=== PATIENT | male | born 1945 | race Caucasian/White ===

== ENCOUNTER 2019-11-17 19:16 | Inpatient (IN) | payer MEDICARE ==
[~2019-11-17] VITALS: Ht 175.3 cm; Wt 84.0 kg
[2019-11-17] MEDS ORDERED: DILTIAZEM 5 MG/ML, 5ML ONE (20:18)
[2019-11-17] MEDS ORDERED: INSULIN SINGLE DOSE, ER ONE ×2 (20:26→20:30)
[2019-11-17] MEDS ORDERED: INSULIN REGULAR 100 UNITS/ML, 3ML VIAL IV ONE (20:30)
[2019-11-17] MEDS ORDERED: DILTIAZEM 5 MG/ML, 5ML IVPush ONE (20:30)
[2019-11-17 20:43] LABS: MEAN CORPUSCULAR HEMOGLOBIN 30.3 pg (27.5-34.5); MEAN CORPUSCULAR HGB CONC 34.7 g/dL (33.2-36.2); MEAN CORPUSCULAR VOLUME 87.5 fL (81-97); MEAN PLATELET VOLUME 8.4 fL (7.4-10.4); PH, VENOUS 7.404 pH (7.320-7.420); PLATELET COUNT 138 x10^3/uL (130-400); RED BLOOD COUNT 4.96 x10^6/uL (4.38-5.82); RED CELL DISTRIBUTION WIDTH 13.2 % (9.4-14.8)
[2019-11-17 20:53] LABS: ALANINE AMINOTRANSFERASE 22 U/L (12-78); ALBUMIN 3.1 g/dL (3.4-5.0); ANION GAP 12 mmol/L (5-15); CALCIUM 8.9 mg/dL (8.5-10.1); CHLORIDE 92 mmol/L (98-107); CREATININE 1.86 mg/dL (0.7-1.3)
[2019-11-17 20:58] LABS: ALKALINE PHOSPHATASE 61 U/L (45-117); BILIRUBIN,TOTAL 0.8 mg/dL (0.2-1.0); TOTAL PROTEIN 7.3 g/dL (6.4-8.2); TROPONIN I < 0.015 ng/mL (0.000-0.045)
[2019-11-17 21:06] LABS: MD YES
[2019-11-17 21:09] LABS: <RBC MORPHOLOGY> NORMAL; BAND#(MANUAL) 2.27 x10^3/uL; BANDS%(MANUAL) 12 % (0-7); LYMPH#(MANUAL) 0.19 x10^3/uL (1-3.4); LYMPHS% (MANUAL) 1 % (22-44); MONOS#(MANUAL) 1.51 x10^3/uL (0.3-2.7); MONOS% (MANUAL) 8 % (2-9); SEG#(MANUAL) 14.93 x10^3/uL (1.8-6.8); SEGS% (MANUAL) 79 % (42-75)
[2019-11-17 21:10] LABS: <PLATELET ESTIMATE> DECREASED; <PLT MORPHOLOGY> NORMAL PLT MORPH
[2019-11-17 21:51] LABS: ACETONE, SERUM Small (20mg/dL) (Negative)
[2019-11-17 22:23] LABS: MICROSCOPIC INDICATED
[2019-11-17 22:41] LABS: CULTURE INDICATED? YES
[2019-11-17 23:09] VITALS: BP 104/74
[2019-11-17] MEDS: LACTATED RINGERS 1,000 ML IV SCH (23:34)
[2019-11-17 23:59] VITALS: BP 132/75
[2019-11-18] MEDS ORDERED: DILTIAZEM 5 MG/ML, 5ML IVPush ONE
[2019-11-18] MEDS ORDERED: LIDODERM 5% PATCH TD PRN
[2019-11-18] MEDS ORDERED: DOCUSATE 100 MG CAPSULE PO PRN
[2019-11-18] MEDS ORDERED: INSULIN LISPRO 100 UNITS/ML, PEN SQ-INSULIN SCH (00:30)
[2019-11-18 01:09] LABS: RAPID INFLUENZA A Negative (Negative); RAPID INFLUENZA B Negative (Negative)
[2019-11-18] MEDS: CEFTRIAXONE PMX 1GM/50ML 50 ML IV SCH (01:53)
[2019-11-18 02:14] VITALS: BP 134/71
[2019-11-18] MEDS: ACETAMINOPHEN 325 MG TABLET PO PRN ×2 (02:19→10:25)
[2019-11-18] MEDS: LACTATED RINGERS 1,000 ML IV SCH (02:30)
[2019-11-18 04:41] LABS: MEAN CORPUSCULAR HEMOGLOBIN 30.1 pg (27.5-34.5); MEAN CORPUSCULAR HGB CONC 34.2 g/dL (33.2-36.2); MEAN CORPUSCULAR VOLUME 87.9 fL (81-97); PLATELET COUNT 134 x10^3/uL (130-400); RED BLOOD COUNT 4.25 x10^6/uL (4.38-5.82); RED CELL DISTRIBUTION WIDTH 12.7 % (9.4-14.8)
[2019-11-18 04:48] LABS: ANION GAP 11 mmol/L (5-15); CALCIUM 8.2 mg/dL (8.5-10.1); CHLORIDE 94 mmol/L (98-107); CREATININE 1.48 mg/dL (0.7-1.3)
[2019-11-18] MEDS ORDERED: MAGNESIUM SULFATE/D5W 100 ML IV ONE (05:00)
[2019-11-18 05:40] LABS: BASOPHILS # (AUTO) 0.02 x10^3/uL (0-0.1); BASOPHILS % (AUTO) 0 % (0-1); EOSINOPHILS # (AUTO) 0.01 x10^3/uL (0-0.4); EOSINOPHILS % (AUTO) 0 % (1-7); LYMPHOCYTES # (AUTO) 0.44 x10^3/uL (1-3.4); LYMPHOCYTES % (AUTO) 3 % (22-44); MD SCAN; MONOCYTES # (AUTO) 0.85 x10^3/uL (0.2-0.8); MONOCYTES % (AUTO) 5 % (2-9); NEUTROPHILS # (AUTO) 16.42 x10^3/uL (1.8-6.8); NEUTROPHILS % (AUTO) 93 % (42-75)
[2019-11-18 07:07] VITALS: BP 138/75
[2019-11-18] MEDS ORDERED: DILTIAZEM 125 MG in SODIUM CHLORIDE 0.9% 100 ML IV SCH (08:00)
[2019-11-18] MEDS ORDERED: INSULIN GLARGINE 100 UNITS/ML, PEN SQ-INSULIN SCH (08:00)
[2019-11-18] MEDS: INSULIN LISPRO 100 UNITS/ML, PEN SQ-INSULIN SCH ×4 (09:41→21:36)
[2019-11-18] MEDS ORDERED: METOPROLOL TARTRATE 25 MG TAB PO SCH (11:30)
[2019-11-18 12:19] VITALS: BP 104/64
[2019-11-18] MEDS ORDERED: SODIUM CHLORIDE 0.9% 1,000 ML IV SCH (13:00)
[2019-11-18 16:30] VITALS: BP 86/65
[2019-11-18 17:22] VITALS: BP 101/63
[2019-11-18] MEDS: DILTIAZEM 125 MG in SODIUM CHLORIDE 0.9% 100 ML IV SCH (19:28)
[2019-11-18 20:20] VITALS: BP 124/76
[2019-11-18] MEDS: INSULIN GLARGINE 100 UNITS/ML, PEN SQ-INSULIN SCH (21:36)
[2019-11-18] MEDS ORDERED: LACTATED RINGERS 1,000 ML IV SCH (23:30)
[2019-11-19 00:26] VITALS: BP 145/88
[2019-11-19] MEDS: CEFTRIAXONE PMX 1GM/50ML 50 ML IV SCH (00:39)
[2019-11-19] MEDS: METOPROLOL TARTRATE 25 MG TAB PO SCH ×3 (06:43→21:53)
[2019-11-19 07:26] VITALS: BP 132/79
[2019-11-19] MEDS: INSULIN LISPRO 100 UNITS/ML, PEN SQ-INSULIN SCH ×4 (07:50→21:54)
[2019-11-19] MEDS: INSULIN GLARGINE 100 UNITS/ML, PEN SQ-INSULIN SCH ×2 (07:50→21:53)
[2019-11-19] MEDS ORDERED: DILTIAZEM 125 MG in SODIUM CHLORIDE 0.9% 100 ML IV SCH (08:00)
[2019-11-19 08:52] LABS: MEAN CORPUSCULAR HEMOGLOBIN 30.4 pg (27.5-34.5); MEAN CORPUSCULAR HGB CONC 33.9 g/dL (33.2-36.2); MEAN CORPUSCULAR VOLUME 89.7 fL (81-97); MEAN PLATELET VOLUME 8.8 fL (7.4-10.4); PLATELET COUNT 131 x10^3/uL (130-400); RED BLOOD COUNT 4.42 x10^6/uL (4.38-5.82)
[2019-11-19 09:22] LABS: ANION GAP 8 mmol/L (5-15); CALCIUM 8.8 mg/dL (8.5-10.1); CHLORIDE 95 mmol/L (98-107); CREATININE 1.46 mg/dL (0.7-1.3)
[2019-11-19 09:27] LABS: MD YES
[2019-11-19 09:28] LABS: BAND#(MANUAL) 1.11 x10^3/uL; BANDS%(MANUAL) 7 % (0-7); LYMPH#(MANUAL) 0.16 x10^3/uL (1-3.4); LYMPHS% (MANUAL) 1 % (22-44); MONOS#(MANUAL) 0.32 x10^3/uL (0.3-2.7); MONOS% (MANUAL) 2 % (2-9); SEG#(MANUAL) 14.22 x10^3/uL (1.8-6.8); SEGS% (MANUAL) 90 % (42-75)
[2019-11-19 09:29] LABS: <PLATELET ESTIMATE> ADEQUATE; <PLT MORPHOLOGY> NORMAL PLT MORPH; <RBC MORPHOLOGY> NORMAL
--- NOTE | 2019-11-19 10:05 | NUR ---
Pt will need SNF rehab at 5x/week. Addendum: 11/19/19 at 1006 by Christopher Hernandez PT Amended: Links added.
[2019-11-19] MEDS ORDERED: SODIUM CHLORIDE 0.9% 1,000ML IVBOLUS ONE (11:00)
[2019-11-19 13:27] VITALS: BP 110/71
[2019-11-19 20:08] VITALS: BP 123/78
[2019-11-19] MEDS: DILTIAZEM 125 MG in SODIUM CHLORIDE 0.9% 100 ML IV SCH (20:12)
[2019-11-20 00:04] VITALS: BP 123/73
[2019-11-20] MEDS: CEFTRIAXONE PMX 1GM/50ML 50 ML IV SCH (01:20)
[2019-11-20] MEDS ORDERED: SODIUM CHLORIDE 0.9% 500 ML IV SCH (03:30)
[2019-11-20] MEDS: METOPROLOL TARTRATE 25 MG TAB PO SCH ×3 (06:11→21:44)
[2019-11-20 06:58] LABS: MEAN CORPUSCULAR HEMOGLOBIN 29.6 pg (27.5-34.5); MEAN CORPUSCULAR HGB CONC 33.8 g/dL (33.2-36.2); MEAN CORPUSCULAR VOLUME 87.7 fL (81-97); MEAN PLATELET VOLUME 8.7 fL (7.4-10.4); PLATELET COUNT 137 x10^3/uL (130-400); RED BLOOD COUNT 4.62 x10^6/uL (4.38-5.82)
[2019-11-20 07:06] LABS: ANION GAP 8 mmol/L (5-15); CALCIUM 8.7 mg/dL (8.5-10.1); CHLORIDE 96 mmol/L (98-107)
[2019-11-20 07:09] LABS: CREATININE 1.21 mg/dL (0.7-1.3)
[2019-11-20 07:21] LABS: TROPONIN I < 0.015 ng/mL (0.000-0.045)
[2019-11-20 07:45] VITALS: BP 122/76
[2019-11-20 08:16] LABS: MD YES
[2019-11-20] MEDS: INSULIN GLARGINE 100 UNITS/ML, PEN SQ-INSULIN SCH ×2 (08:19→21:43)
[2019-11-20] MEDS: INSULIN LISPRO 100 UNITS/ML, PEN SQ-INSULIN SCH ×4 (08:19→21:00)
[2019-11-20 08:20] LABS: EOS#(MANUAL) 0.17 x10^3/uL (0.0-0.4); EOS% (MANUAL) 1 % (1-7); LYMPH#(MANUAL) 1.01 x10^3/uL (1-3.4); LYMPHS% (MANUAL) 6 % (22-44); MONOS#(MANUAL) 1.01 x10^3/uL (0.3-2.7); MONOS% (MANUAL) 6 % (2-9)
[2019-11-20 08:21] LABS: <RBC MORPHOLOGY> NORMAL; BAND#(MANUAL) 1.69 x10^3/uL; BANDS%(MANUAL) 10 % (0-7); SEG#(MANUAL) 13.01 x10^3/uL (1.8-6.8); SEGS% (MANUAL) 77 % (42-75)
[2019-11-20 08:22] LABS: <PLATELET ESTIMATE> ADEQUATE; <PLT MORPHOLOGY> NORMAL PLT MORPH
[2019-11-20] MEDS ORDERED: POTASSIUM PHOSPHATE 22 MEQ in SODIUM CHLORIDE 0.9% 500 ML IV ONE (11:00)
[2019-11-20 12:49] VITALS: BP 146/89
[2019-11-20] MEDS ORDERED: FUROSEMIDE 20 MG/2 ML IV ONE (16:00)
[2019-11-20] MEDS ORDERED: POTASSIUM CHLORIDE 20 MEQ TAB.ER.PRT PO ONE (16:00)
[2019-11-20 16:58] VITALS: BP 117/74
[2019-11-20 21:41] VITALS: BP 128/81
[2019-11-21 01:25] VITALS: BP 128/84
[2019-11-21 05:12] LABS: ANION GAP 8 mmol/L (5-15); CALCIUM 8.4 mg/dL (8.5-10.1); CHLORIDE 96 mmol/L (98-107); CREATININE 1.06 mg/dL (0.7-1.3)
[2019-11-21 05:13] LABS: MEAN CORPUSCULAR HEMOGLOBIN 29.6 pg (27.5-34.5); MEAN CORPUSCULAR HGB CONC 33.5 g/dL (33.2-36.2); MEAN CORPUSCULAR VOLUME 88.5 fL (81-97); MEAN PLATELET VOLUME 8.7 fL (7.4-10.4); PLATELET COUNT 159 x10^3/uL (130-400)
[2019-11-21 05:51] LABS: MD YES
[2019-11-21 05:53] LABS: BAND#(MANUAL) 0.82 x10^3/uL; BANDS%(MANUAL) 5 % (0-7); LYMPH#(MANUAL) 0.82 x10^3/uL (1-3.4); LYMPHS% (MANUAL) 5 % (22-44); METAMYELOCYTES# (MANUAL) 0.16 x10^3/uL (0-0); METAMYELOCYTES% (MANUAL) 1 % (0-1); MONOS#(MANUAL) 0.98 x10^3/uL (0.3-2.7); MONOS% (MANUAL) 6 % (2-9); SEG#(MANUAL) 13.53 x10^3/uL (1.8-6.8); SEGS% (MANUAL) 83 % (42-75)
[2019-11-21 05:55] LABS: <PLATELET ESTIMATE> ADEQUATE; <PLT MORPHOLOGY> NORMAL PLT MORPH; <RBC MORPHOLOGY> NORMAL; PMNS WITH VACUOLES 1+; TOXIC GRAN 1+
[2019-11-21 06:03] VITALS: BP 155/98
[2019-11-21] MEDS: METOPROLOL TARTRATE 25 MG TAB PO SCH (06:05)
[2019-11-21] MEDS ORDERED: FUROSEMIDE 20 MG/2 ML IV ONE (06:30)
[2019-11-21] MEDS ORDERED: METOPROLOL TARTRATE 50 MG TAB PO SCH (06:30)
[2019-11-21] MEDS ORDERED: POTASSIUM CHLORIDE 20 MEQ TAB.ER.PRT PO ONE (06:30)
[2019-11-21] MEDS ORDERED: METOPROLOL TARTRATE 25 MG TAB PO ONE (07:00)
[2019-11-21] MEDS: INSULIN LISPRO 100 UNITS/ML, PEN SQ-INSULIN SCH ×4 (07:53→21:02)
[2019-11-21] MEDS: INSULIN GLARGINE 100 UNITS/ML, PEN SQ-INSULIN SCH ×2 (08:10→21:02)
[2019-11-21] MEDS: CEFTRIAXONE PMX 2GM/50ML 50 ML IV SCH (08:19)
[2019-11-21 08:59] VITALS: BP 131/71
[2019-11-21 13:28] VITALS: BP 121/78
[2019-11-21] MEDS: METOPROLOL TARTRATE 50 MG TAB PO SCH ×2 (13:31→21:01)
[2019-11-21 20:50] VITALS: BP 149/90
[2019-11-22 00:28] VITALS: BP 114/68
[2019-11-22 05:13] VITALS: BP 147/94
[2019-11-22] MEDS: METOPROLOL TARTRATE 50 MG TAB PO SCH ×2 (05:15→14:24)
[2019-11-22 05:36] LABS: MEAN CORPUSCULAR HEMOGLOBIN 29.6 pg (27.5-34.5); MEAN CORPUSCULAR HGB CONC 33.8 g/dL (33.2-36.2); MEAN CORPUSCULAR VOLUME 87.4 fL (81-97); MEAN PLATELET VOLUME 8.9 fL (7.4-10.4); PLATELET COUNT 178 x10^3/uL (130-400); RED BLOOD COUNT 4.29 x10^6/uL (4.38-5.82); RED CELL DISTRIBUTION WIDTH 13.6 % (9.4-14.8)
[2019-11-22 05:48] LABS: ANION GAP 7 mmol/L (5-15); CALCIUM 8.2 mg/dL (8.5-10.1); CHLORIDE 101 mmol/L (98-107)
[2019-11-22 06:16] LABS: BASOPHILS # (AUTO) 0.07 x10^3/uL (0-0.1); BASOPHILS % (AUTO) 1 % (0-1); EOSINOPHILS # (AUTO) 0.16 x10^3/uL (0-0.4); EOSINOPHILS % (AUTO) 1 % (1-7); LYMPHOCYTES # (AUTO) 1.01 x10^3/uL (1-3.4); LYMPHOCYTES % (AUTO) 7 % (22-44); MD SCAN; MONOCYTES # (AUTO) 1.38 x10^3/uL (0.2-0.8); MONOCYTES % (AUTO) 9 % (2-9); NEUTROPHILS # (AUTO) 12.49 x10^3/uL (1.8-6.8); NEUTROPHILS % (AUTO) 83 % (42-75)
[2019-11-22 07:58] VITALS: BP 132/84
[2019-11-22] MEDS: CEFTRIAXONE PMX 2GM/50ML 50 ML IV SCH (09:25)
[2019-11-22] MEDS: INSULIN GLARGINE 100 UNITS/ML, PEN SQ-INSULIN SCH ×2 (09:26→09:28)
[2019-11-22] MEDS: INSULIN LISPRO 100 UNITS/ML, PEN SQ-INSULIN SCH ×2 (09:27→12:46)
[2019-11-22] MEDS ORDERED: INSU100I11 SQ-INSULIN (12:33)
[2019-11-22] MEDS ORDERED: METO50TA82 PO (12:33)
[2019-11-22] MEDS ORDERED: ACET325T26 PO (12:33)
[2019-11-22] MEDS ORDERED: LIDO700A20 TD (12:33)
[2019-11-22] MEDS ORDERED: INSU100I13 SQ-INSULIN (12:33)
[2019-11-22 13:19] VITALS: BP 146/89
[2019-11-22 14:24] VITALS: BP 128/72
== END 2019-11-22 18:20 | DRG 871 ==
LOC: ED 21:15 → EDIP 21:46 → 5SO 23:04
PROVIDERS: ATTEND Hospitalist
DX: A41.9 Sepsis, unspecified organism (principal); N17.0 Acute kidney failure with tubular necrosis; D68.59 Other primary thrombophilia; E87.1 Hypo-osmolality and hyponatremia; F05 Delirium due to known physiological condition; N12 Tubulo-interstitial nephritis, not specified as acute or chronic; I48.91 Unspecified atrial fibrillation; E11.51 Type 2 diabetes mellitus with diabetic peripheral angiopathy without gangrene; B96.20 Unspecified Escherichia coli [E. coli] as the cause of diseases classified elsewhere; E11.65 Type 2 diabetes mellitus with hyperglycemia; I10 Essential (primary) hypertension; N28.1 Cyst of kidney, acquired; Z79.4 Long term (current) use of insulin; Z79.82 Long term (current) use of aspirin; Z85.828 Personal history of other malignant neoplasm of skin
CPT/HCPCS: 36415; 70450; 71045; 74177; 80048; 80053; 81001; 82010; 82803; 82962; 83036; 83605; 83690; 83735; 83880; 84100; 84132; 84145; 84484; 85025; 87040; 87077; 87086; 87186; 87400; 93005; 96374; G0378; J0696; J1815; J1940; J7030; J7040; J7120